=== PATIENT | male | born 1955 | race Caucasian/White ===

== ENCOUNTER 2019-02-28 22:46 | Inpatient (IN) | payer MEDICARE, SELFPAY ==
[2019-02-28 23:02] VITALS: BMI 25.0
--- NOTE | 2019-02-28 23:21 | PC.NURSE ---
When going over patient's home medications with patient and , they state that he does not take some of his medications that he has been prescribed such as Flomax, Singulair, and Gabapentin, stating they don't help me. Medications that patient and state he takes have been listed under med rec. Patient arrived to the floor via EMS from [facility] after report was received via phone. is at bedside. Patient arrived on 3 L NC with oxygen saturation at 93%. Other VSS. Patient is alert and oriented and is not complaining of any pain or shortness of breath, but does complaining of feeling weak . Patient has been oriented to his room with call light within reach.
[2019-03-01] VITALS (18 sets, daily range): BP systolic 100–117; BP diastolic 58–76; PULSE 53–80; RESP 16–20; TEMP 36.4–37; O2SAT 91–96
--- NOTE | 2019-03-01 00:09 | PM.HP ---
Providers/Chief Complaint Admitting Physician: Marco A Franklin DO Chief Complaint: HYPOTENSION, PNEUMONIA, EXACERBATION COPD History of Present Illness Transfer from outside facility Feng Egan is a 63 year old male with past medical history of COPD, ex-smoker, hypertension, BPH presents with shortness of breath and cough. As per patient, for the past 4 days he has experienced severe lethargy and weakness along with fever, chills, cough productive of brownish sputum. Patient also states that her shortness of breath has progressively worsened along with severe wheezing. Denies any chest pain, abdominal pain, nausea vomiting or other complaints. Patient is a transfer from outside facility. As per conversation with the ER doctor and medical records faxed patient noted to have no leukocytosis on initial CBC, noted to have creatinine of 2.7 and x-ray showing infiltrate. Patient given dose of Levaquin at the outside ED. Patient also initially noted to be hypotensive at the previous facility status post 3 L of fluid. No lactate sent. Review of Systems General: Reports: 10 or more systems reviewed and unremarkable except in HPI and below Const: Reports: fever, chills, fatigue and malaise Resp: Reports: shortness of breath, productive cough and wheezing Medications/Allergies Home Medications Medication Instructions Recorded Confirmed Last Taken Type clonazepam 1 mg PO BID 02/28/19 02/28/19 1 Day Ago History ~02/27/19 lisinopril 20 mg PO DAILY 02/28/19 02/28/19 02/26/19 History omeprazole 20 mg PO DAILY 02/28/19 03/01/19 3 Days Ago History ~02/25/19 pravastatin 40 mg PO DAILY 02/28/19 03/01/19 3 Days Ago History ~02/25/19 tramadol 50 mg PO Q6H PRN 02/28/19 02/28/19 1 Day Ago History ~02/27/19 Allergies Allergy/AdvReac Type Severity Reaction Status Date / Time amlodipine Allergy Unknown Verified 02/28/19 23:10 PFSH Acute PFSH: Statuses (acute, chronic, etc) shown below reflect problem list status as previously entered and may not be historically accurate Medical History (Updated 03/01/19 @ 00:16 by Marco A Franklin DO) BPH (benign prostatic hyperplasia) (Chronic) COPD (chronic obstructive pulmonary disease) (Acute) GERD (gastroesophageal reflux disease) (Chronic) Hyperlipemia (Chronic) Hypertension (Chronic) Family History (Updated 02/28/19 @ 23:09 by Tess Machado, RN) Brother Hx of CABG Social History (Updated 02/28/19 @ 23:09 by Tess Machado, RN) Smoking and tobacco status: former smoker Quit status (tobacco): has quit using tobacco Vitals/I&O/Wt Weight last 48 hrs Weight 81.465 kg Physical Exam Const: COMMON NORMALS: no apparent distress, oriented x3 and well nourished HENMT: COMMON NORMALS: normocephalic HEAD & SCALP: normocephalic Eye: COMMON NORMALS: no scleral icterus Neck/C-Spine: COMMON NORMALS: full ROM and supple Resp: AUSCULTATION: rhonchi and wheezes Cardio: COMMON NORMALS: regular rate, regular rhythm, S1 normal heart sound and S2 normal heart sound RATE: regular rate RHYTHM: regular rhythm HEART SOUNDS: S1 normal and S2 normal GI: COMMON NORMALS: normal to inspection, nondistended, normoactive bowel sounds and non-tender Extremity: COMMON NORMALS: full ROM and no clubbing, cyanosis or edema Neuro: COMMON NORMALS: oriented x3 Psych: COMMON NORMALS: mental status grossly normal Skin: COMMON NORMALS: no rashes or lesions noted GENERAL SKIN EXAM: no rashes or lesions noted A&P Assessment and plan (1) BPH (benign prostatic hyperplasia): Status: Chronic Code(s): N40.0 - Benign prostatic hyperplasia without lower urinary tract symptoms (2) COPD (chronic obstructive pulmonary disease): Status: Acute Code(s): J44.9 - Chronic obstructive pulmonary disease, unspecified (3) GERD (gastroesophageal reflux disease): Status: Chronic Code(s): K21.9 - Gastro-esophageal reflux disease without esophagitis (4) Hyperlipemia: Status: Chronic Code(s): E78.5 - Hyperlipidemia, unspecified (5) Hypertension: Status: Chronic Code(s): I10 - Essential (primary) hypertension (6) Pneumonia: # SOB 2/2 CAP w/ concomitant acute on chronic COPD exacerbation ?IV Rocephin and azithromycin ?Strep, Legionella and sputum culture ?IV fluids ?Procalcitonin level ?Follow-up blood cultures ?IV Solu-Medrol ?Nebulizer treatments ?Nasal cannula as needed - f/u lactic acid level #DEVIN versus CKD ?Monitor creatinine ?RACHEL inhibitor currently on hold unknown if DEVIN or CKD ?IV fluids #History of hypertension?patient currently hypotensive so BP meds on hold #Continue with rest of chronic home medications #DVT prophylaxis?enoxaparin subcu Status: Acute Code(s): J18.9 - Pneumonia, unspecified organism Attestations Medical Necessity Statement*: Patient requires greater than 2 midnights inpatient admission for COPD exacerbation and pneumonia Coding Level of Care Code Acute Manager Terminal for g Fwd Diagnoses BPH (benign prostatic hyperplasia) N40.0 COPD (chronic obstructive pulmonary disease) J44.9 GERD (gastroesophageal reflux disease) K21.9 Hyperlipemia E78.5 Hypertension I10 Pneumonia J18.9
[2019-03-01 00:48] LABS: Hematocrit 35.2 % (42.0-52.0); Hemoglobin 11.3 g/dL (11.7-16.6); Lymphocytes # 0.6 10^3/uL (0.8-4.8); Lymphocytes % 9.6 %; Mean Corpuscular HGB Conc 32.1 g/dL (30.0-36.0); Mean Corpuscular Volume 93.4 fL (80-94); Mean Platelet Volume 9.4 fL (7.4-10.4); Monocytes # 0.1 10^3/uL (0.2-0.9); Monocytes % 1.6 %; Neutrophils # 5.1 10^3/uL (1.8-7.7); Neutrophils % 88.5 %; Nucleated Red Blood Cells % 0 %; Platelet Count 211 10^3/cmm (130-400); Red Blood Count 3.77 10^6/uL (4.1-5.3); Red Cell Distribution Width 12.2 % (12.1-15.1); White Blood Count 5.7 10^3/uL (4.0-10.0)
[2019-03-01] MEDS: sodium chloride 0.9% 1,000 ML 100 ML IV ×3 (00:56→20:56)
[2019-03-01] MEDS: enoxaparin 40 mg/0.4 mL Syringe SUBCUT ×2 (00:57→21:01)
[2019-03-01] MEDS: cefTRIAXone 1,000 MG in sodium chloride 0.9% (plus) 50 ML 100 MG IV ×2 (00:57→20:57)
[2019-03-01 01:10] LABS: Procalcitonin 0.71 ng/mL (0-0.8)
[2019-03-01 01:21] LABS: Anion Gap 19.3 (5-19); Blood Urea Nitrogen 28 mg/dL (8-23); Calcium 7.8 mg/Dl (8.8-10.2); Carbon Dioxide 20 mmol/L (22-29); Chloride 98 mmol/L (98-107); Glomerular Filtration Rate 33.7 mL/min (90-130); Glucose 152 mg/dL (74-106); Potassium 5.3 mmol/L (3.5-5.1); Sodium 132 mmol/L (136-145)
[2019-03-01 01:33] LABS: Add Urine Microscopic? NO
[2019-03-01 01:41] LABS: Lactic Sepsis W/Reflex 1.8 mmol/L (0.5-2.2)
--- NOTE | 2019-03-01 01:41 | PC.NURSE ---
At 0100 patient was telling this nurse he was having trouble urinating. Patient stated he had urinated once since 0830 02/28/2019. Patient states his bladder fills full and has tried multiple times to pee and cant. Bladder scan was preformed and showed approximately 600mls. Kourtney HEDRICK called Dr. Franklin and obtained an order for a lynch catheter and patient agreed and procedure was explained. See urinary cath intervention documentation.
[2019-03-01 01:47] LABS: Bilirubin Urine Neg (NEGATIVE); Blood Urine Neg (Negative); Glucose Urine UA Norm (Normal); Ketones Urine Negative (Negative); Leukocyte Esterase Urine Negative (Negative); Nitrate Urine Negative (Negative); Protein Urine Neg (Negative); Specific Gravity, Urine 1.015 (1.005-1.030); Urine Appearance Clear (CLEAR); Urine Color Yellow (Yellow); Urobilinogen Urine Norm (Negative); pH Urine 5 (5-7)
[2019-03-01] MEDS: azithromycin 500 MG in sodium chloride 0.9% 250 ML 250 MG IV (02:08)
[2019-03-01] MEDS: ipratropium-albuterol 3 mL Neb INHALATION ×5 (03:35→20:16)
[2019-03-01] MEDS: pantoprazole DR 40 mg Tablet PO (08:50)
[2019-03-01] MEDS: atorvastatin 40 mg Tablet 20 MG PO (08:50)
[2019-03-01] MEDS: CLONazepam 1 mg Tablet PO ×2 (08:50→17:22)
[2019-03-01 09:47] LABS: Influenza A by IFA Negative (Negative); Influenza B by IFA Negative (Negative)
[2019-03-01] MEDS: acetaminophen 325 mg Tablet 650 MG PO (11:53)
[2019-03-01 12:05] LABS: Cortisol Random 15.02 mcg/dL (2.47-19.5)
--- NOTE | 2019-03-01 14:22 | PC.CHAP ---
Pastoral Care Encounter/Spiritual Assessment Type of Contact [] Declined dental equipment technician visit [] Patient/Family/Request visit [] Outpatient visit [x] Follow-up visit [] Physician referral [] Code/Alert [] Routine visit [] Staff referral [] Actively dying [] Patient sleeping [] Family support [] [x] Out of room [] Palliative care [] [] Receiving care in room [] Pre-surgical visit [] Trauma [] Long length of stay [] ICU visit [] Other: Relational/Emotional Strength [] Patient feels connected with others/family/visitors/staff [] Distress [] Loneliness/isolation [] Abandonment Spirituality of Patient [] Person of Gabi [] Attends Orthodoxy of their Gabi [] Believes in Prayer [] Reads Bible or Catholic materials [] There are Spiritual issues to be addressed Senior Network Security Engineer Interventions [] Prayer [] Active listening [] Non-anxious presence [] Spiritual/emotional support [] Crisis/trauma care [] Spiritual counseling [] Bereavement support [] Provided bereavement packet [] Provided Bible/devotional materials [] Provided toy/stuffed animal, coloring book to patient or family member [] Completed spiritual assessment [] Provided Communion [] Anointing/[place] [] Salvation [] Other: Impact on Illness or Injury [] Angry [] Fearful [] Anxious [] Often cries [] Exhaustion [] Unable to work [] Unable to attend jew [] Unable to walk/stand [] Unable to read [] Unable to drive [] Unable to eat/drink [] Unable to sleep [] Unable to be with family [] Other: Summary Out of room for tests. Patient needs follow up. Time spent with patient 2 min
--- NOTE | 2019-03-01 18:45 | PM.PN ---
Subjective Subjective: Interval history: Nakul reports he feels better than on admission. He is still short of breath. Medications: Reviewed: Yes Vitals/I&O/Wt Last Vital Signs Temp 98.0 F 03/01/19 16:00 Pulse 58 L 03/01/19 16:00 Resp 20 H 03/01/19 16:00 BP 106/65 03/01/19 16:00 Pulse Ox 93 03/01/19 16:00 03/01/19 03/01/19 03/01/19 06:59 14:59 22:59 Intake Total 100 / 100 1000 / 1000 480 / 1480 Output Total 550 / 550 900 / 900 Balance -450 / -450 1000 / 1000 -420 / 580 Weight last 48 hrs Weight 80.876 kg Weight 80.876 kg Weight 81.465 kg Physical Exam Narrative: EXAM NARRATIVE: General exam is no apparent distress Cardiovascular regular rate and rhythm without murmur Lungs bilateral expiratory wheezes. A few rhonchi. Abdomen is soft with positive bowel sounds Extremities no cyanosis clubbing or edema. Urinary Catheter Management^: Nichole: Cath Placed During This Visit: no Data Micro: Micro: Microbiology 03/01/19 01:30 Legionella Urinary Antigen - Final Urine Catheterize d 03/01/19 00:37 Blood Culture - Pr eliminary Blood [facility] 03/01/19 00:33 Blood Culture - Pr eliminary Blood [facility] A&P Assessment and plan (1) COPD exacerbation: On IV steroids. Receiving pulmonary toilet. Placed on IV antibiotics although pneumonia is less likely. These will be continued at this time. Status: Acute Code(s): J44.1 - Chronic obstructive pulmonary disease with (acute) exacerbation (2) Acute renal failure: Renal function improving with hydration. RACHEL inhibitor is being held Status: Acute Code(s): N17.9 - Acute kidney failure, unspecified (3) Hypertension: Blood pressure initially low. This is improving. Status: Chronic Code(s): I10 - Essential (primary) hypertension Additional A&P Information GERD Hyperlipidemia BPH Attestations Medical Necessity Statement*: Needs continued hospitalization for pulmonary toilet, IV steroids secondary to COPD exacerbation Coding Level of Care Code Acute Chemists for [facility] Diagnoses COPD exacerbation J44.1 Acute renal failure N17.9 Hypertension I10
--- NOTE | 2019-03-01 21:58 | PC.NURSE ---
Patient moved to 105 via bed secondary to complaining of inability to sleep. He keeps me awake all night.....I really need something to help me sleep. Dr. Gasca notified by RYLEY Spencer. Awaiting return call. This nurse explained this to him and he voices understanding. Will monitor.
[2019-03-01] MEDS: zolpidem 5 mg Tablet PO (22:14)
--- NOTE | 2019-03-01 22:23 | PC.NURSE ---
Ambien 5mg PO given for sleep as ordered and per patient request. Patient talking about riding motorcycles, driving a truck and politics. After explaining about the medication that this nurse was giving him, patient states, well, I've been having chest pain right here..(pointing at left breast). When asked when the chest pain started, patient states, about 2 weeks now....nothing bad....I don't want anything like open heart or anything like that....if it comes to that...just send me home on hospice and let me cause I want to at home. Patient denies radiation of pain. Skin w/d. Monitor showing SB with no ectopy noted at this time. When this nurse asked him about the pain now, patient states, Oh, I have none now. Will monitor.
--- NOTE | 2019-03-02 00:13 | PC.NURSE ---
Called to patient's room. Patient with the following complaints: my ears are popping.....my eyes are burning......I'd like to know what in the hell my doctor is planning on doing...all he told me this morning was that he was gonna look at my chart and my numbers and we'd take it from there.....I can't sleep....I feel like my nerves are just flying like when I use to do speed.....I should have just stayed at [facility]....I'm really thinking about calling my and leaving.....you can get me the stuff to go home on.....this is bullshit.....I can't sleep....I say put me on hospice and let me go home and . This nurse attempted several times to explain everything to patient but he kept interrupting. This nurse did explain to patient that staff couldn't keep him here against his will and that if he left, this nurse could not give him stuff to go home on. This nurse also attempted to explain the Solu-Medrol and the side effects of it and what it was used for. My doctor hasn't told me a damn thing. This nurse attempted to explain to patient what he was admitted with and the treatment with the antibiotics. I'll just have to talk to him tomorrow...you need to turn me on my side and put pillows behind me. This nurse did ask patient if he could turn himself and patient states, yeah but I can't put the pillows back there.....you need to get your daughter and a couple of her friends in here to turn me. This nurse explained to patient that my daughter didn't work here and if he could turn himself, I could place the pillows behind his back. I guess I can....you sure you can't give me anything stronger to help me sleep? During this time, patient could hardly keep his eyes open. Positioned on left side with pillows placed to back. Will monitor.
[2019-03-02 00:30] VITALS: PULSE 53; RESP 18; O2SAT 91
--- NOTE | 2019-03-02 00:35 | PC.NURSE ---
This nurse was informed by RT that patient has refused his RT treatments and told RT to shut his oxygen off. Oxygen off as requested.
--- NOTE | 2019-03-02 00:44 | PC.NURSE ---
Called to patient's room by patient. Patient had turned self to right side. This nurse asked if he would like to have pillows removed. You need to move the pillows behind my back. Pillows moved per patient request. I told them to keep that hose out of my nose,,,,I can't hardly breathe with it.....all it is is just a gas and it smells and taste's funny. This nurse attempted to explain the need for the oxygen;however, patient wouldn't listen. Just fix my pillows and close my door. Did offer to humidify the oxygen. Patient states, No....I don't want it. Call light given to patient. Will monitor.
[2019-03-02] MEDS: azithromycin 500 MG in sodium chloride 0.9% 250 ML 250 MG IV (01:44)
--- NOTE | 2019-03-02 02:09 | PC.NURSE ---
This nurse went to patient's room to hang antibiotic. Antibiotic started after explaining to patient what the medication was and what it was for. Patient states, Well am I going to inhale it? This nurse explained to patient that it would be going through his IV. This nurse did ask patient if he wanted his breathing treatment and oxygen back on. Patient states, No I don't and turn this damn light off. Light off per patient request. Oxygen Saturation running 88% on RA. Will monitor.
--- NOTE | 2019-03-02 02:21 | PC.NURSE ---
Patient states, I think this will be my last day here. This nurse explained to patient that that would be his choice;however, he really needed to wait and speak with the physician. We'll see. Will monitor.
--- NOTE | 2019-03-02 03:41 | PC.NURSE ---
SQUEAK RATTLE AND LEAK REPAIRER answered patient's call light. I want to go home now....I want to get dressed. IV discontinued with catheter intact. Pressure dressing applied. Spouse notified and on her way. Dr. Gasca notified earlier of patient's threats to leave AMA. She stated to let him leave if he wanted to. Will notify Dr. Gasca when spouse gets here.
--- NOTE | 2019-03-02 05:07 | PC.NURSE ---
Spouse here. Indwelling lynch catheter discontinued. AMA form signed by patient after explaining the risks involved of signing out of the facility AMA. Patient voices understanding. To ER parking lot via wheelchair accompanied by spouse and staff.
[2019-03-02 05:23] VITALS: PULSE 53; RESP 18; O2SAT 91
--- NOTE | 2019-03-12 14:24 | P.EN_ITS ---
Event Note Event Note: Patient left AMA while it training specialist on. Was unable to see on 03/02/19 as patient already gone. Event Notes Attestations Time Spent in Patient Care: NA
--- NOTE | 2019-03-12 14:24 | PM.EVENT ---
Event Note Event Note: Patient left AMA while county treasurer on. Was unable to see on 03/02/19 as patient already gone. Event Notes Attestations Time Spent in Patient Care: NA
== END 2019-03-02 05:24 | disposition left against medical advice (07) | DRG 191 ==
PROVIDERS: Admitting Provider Internal Medicine; Family Provider Family Medicine; Visit Provider Internal Medicine
DX: J44.1 Chronic obstructive pulmonary disease with (acute) exacerbation (principal); N17.9 Acute kidney failure, unspecified; K21.9 Gastro-esophageal reflux disease without esophagitis; E78.5 Hyperlipidemia, unspecified; N40.0 Benign prostatic hyperplasia without lower urinary tract symptoms; Z87.891 Personal history of nicotine dependence; I12.9 Hypertensive chronic kidney disease with stage 1 through stage 4 chronic kidney disease, or unspecified chronic kidney disease; N18.9 Chronic kidney disease, unspecified
CPT/HCPCS: 12345; 36415; 51702; 80048; 81003; 82533; 83605; 83735; 84145; 85025; 87040; 87449; 87804; 94640; 96372; 96375; 99221; J0456; J0696; J1650; J2920; J7030; J7050